=== PATIENT | male | born 1950 | race Caucasian/White ===

== ENCOUNTER 2017-03-21 06:05 | Inpatient (IN) ==
--- NOTE | 2017-03-15 15:11 | EKG Report ---
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
--- NOTE | 2017-03-15 15:28 | XRay Report ---
XR chest 2V Indication: Respiratory preoperative evaluation Comparison: None available Findings: The heart and mediastinum are normal in size and configuration. The pulmonary vascularity is normal in caliber. No lung infiltrates, effusions, pneumothorax or other abnormality is demonstrated. Impression: Normal chest x-ray PROCEDURE INTERPRETED AT [facility] Final Report Signed by: Dr. Ebenezer Ray
[2017-03-21] MEDS ORDERED: ALVIMOPAN 12 MG CAPSULE ONE (06:18)
[2017-03-21] MEDS ORDERED: SODIUM CHLORIDE 0.9% 100 ML IV ONE (06:19)
[2017-03-21] MEDS ORDERED: ERTAPENEM 1,000 MG VIAL ONE (06:19)
--- NOTE | 2017-03-21 06:19 | History and Physical Update ---
History and Physical Update - History and Physical H&P was reviewed, the patient examined and there: are no changes in the patients condition since last H&P was completed. - Dictation Physical: refer to scanned H&P
[2017-03-21] MEDS: LACTATED RINGERS 1,000 ML IV SCH ×6 (06:41→22:51)
[2017-03-21] MEDS ORDERED: ALVIMOPAN 12 MG CAPSULE PO SCH (07:00)
[2017-03-21] MEDS ORDERED: LIDOCAINE 2% 5 ML VIAL ONE (07:05)
[2017-03-21] MEDS ORDERED: PROPOFOL 200 MG/20 ML VIAL IV ONE (07:05)
[2017-03-21] MEDS ORDERED: KETOROLAC 30 MG/1 ML VIAL ONE (07:05)
[2017-03-21] MEDS ORDERED: PHENYLEPHRINE 50 MG/5 ML VIAL ONE (07:05)
[2017-03-21] MEDS ORDERED: ONDANSETRON 4 MG/2 ML VIAL ONE (07:05)
[2017-03-21] MEDS ORDERED: ROCURONIUM 100 MG/10 ML VIAL IV ONE (07:05)
[2017-03-21] MEDS ORDERED: ERTAPENEM 1,000 MG in SODIUM CHLORIDE 0.9% 100 ML IV ONE (07:30)
[2017-03-21] MEDS ORDERED: TISSUE ADHESIVE 1 EACH APPLICATOR TOP ONE (08:07)
--- NOTE | 2017-03-21 10:19 | Operative Note ---
Date of procedure: 03/21/17 Pre-op diagnosis: Right colon cancer with symptomatic cholelithiasis Post-op diagnosis: same Procedure: Preoperative diagnosis 1. Right colon cancer 2. Symptomatic cholelithiasis Postoperative diagnosis Same Procedures performed 1. [Robotic assisted laparoscopic lysis of adhesions 2.] Robotic assisted laparoscopic right colectomy 3. Robotic assisted laparoscopic cholecystectomy Complications None apparent Specimen Right colon Gallbladder Findings Adhesions were present between the omentum and the right lower quadrant in the colon. The tattoo was seen and adequate proximal and distal margins were obtained. There is no liver or peritoneal metastatic deposits. The ileum itself looks noninflamed. Blood loss 25 mL Anesthesia GETA Indications Right colon cancer biopsy-proven and symptomatic cholelithiasis Description of procedure The patient was taken to the operating room and transferred to the operating table in supine position. Pressure points were padded and SCDs were placed lower extremities. General endotracheal anesthesia was administered. A Jang catheter was placed with clear urine output. The patient was prepped and draped with chlorhexidine. Preoperative antibiotics were administered and a timeout was performed. The abdomen was entered in a supraumbilical paramedian location on the left side of the abdominal wall with a Veress needle. An 8 mm skin incision was made with an 11 blade scalpel and penetrating towel clips were used to grasp the abdominal wall skin Veress needle was used to enter the peritoneal cavity confirmed by double click technique. Aspiration was negative. Saline drop test confirmed intraperitoneal location. The Veress needle was used to insufflate the abdominal cavity to 15 mmHg with an initial pressure of 2 mmHg. The Veress needle was removed and a robotic 8 mm trocar was placed blindly. Laparoscope was inserted. There is no evidence of Veress needle or trocar injury. Diagnostic laparoscopy was performed. The tattoo was seen in the proximal ascending colon. There was no peritoneal or hepatic metastases. There was some question of colitis and inflammation in the terminal ileum but this was not present on laparoscopy or at least it was not apparent externally. The omentum had become adherent to the area of the tumor in the descending colon and the tattoo. The 12 mm left upper quadrant abdominal trochars placed under direct visualization after local anesthetic was administered and the 5 mm leasing assistant trocar was placed in the left lower quadrant. The 8 mm left lower quadrant trocar was then placed. The robot was docked. The cecum was retracted and the ileocolic pedicle was identified and divided with a vascular stapler. Medial to lateral dissection was performed with visualization of the duodenum and the dissection was then carried up towards the transverse colon. The omentum was taken off of the tumor on the ascending colon with adhesiolysis but part of the omentum was left in place to ensure an adequate resection of the tumor. The colon was transected after the omentum was taken off the colon with electrocautery using a MISSY stapler. The lateral attachments of the colon were then divided down to the pelvis. The terminal ileum was transected also with a MISSY stapler. An intracorporeal anastomosis was completed by making an enterotomy and colotomy in the GI stapler was used to staple the anastomosis side to side. The enterotomy was closed [with the MISSY stapler]. The mesentery was inspected and was not twisted. The mesenteric defect was left open. The gallbladder was grasped by the leasing assistant trocar and the fundus was retracted towards the patient's right shoulder. The cystic plate peritoneum was dissected with the hook electrocautery until the cystic duct and cystic artery were visualized and the critical view of safety was obtained. The cystic duct and cystic artery were clipped centrally and laterally with Hemo-Loc clips and divided in between with scissors. The gallbladder was removed from the gallbladder fossa using electrocautery and placed in a retrieval bag Endo Catch bag and removed through the 12 mm trocar. The robot was undocked. The specimen was extracted through a left upper quadrant incision extended from the 12 mm trocar site through an Ruslan retractor. The tumor was palpated at the site of the tattoo and there were adequate proximal and distal margins. The fascial incision was closed with a 0 non-looped PDS suture in 2 layers. The skin incisions were closed with 4-0 monocryl sutures. The patient's Jang was removed and she was awakened from anesthesia and transferred to recovery. Postoperative plan Advance diet as tolerated Pain control Anesthesia: ÁLVARO Surgeon / Physician: Tacos Brandt Estimated blood loss: minimal (25 mL) Specimens: other (right colon gallbladder) Condition: stable Disposition: PACU Discharge Plan - Discharge Medications No Action No Known Home Medications [No Known Home Medications] - Follow Up or Referral - Forms/Instructions
--- NOTE | 2017-03-21 10:32 | Anesthesia Post-Op ---
Anesthesia Post OP - Post Ansesthetic Evaluation Patient seen in post op: Yes Resp: within normal limits CV: within normal limits Mental: within normal limits (pt remained sedated) Temp: within normal limits Mezu-Vh-Rqjeuzmvj: within normal limits Nausea and Vomiting: within normal limits Pain: within normal limits
[2017-03-21] MEDS ORDERED: MIDAZOLAM 2 MG/2 ML VIAL ONE (10:43)
[2017-03-21] MEDS ORDERED: SEVOFLURANE 1 UNIT/15 MINUTE INH ONE (10:43)
[2017-03-21] MEDS ORDERED: ACETAMINOPHEN 1,000 MG/100 ML VIAL IV ONE (10:44)
[2017-03-21] MEDS ORDERED: LACTATED RINGERS 3,000 ML IV ONE (10:44)
[2017-03-21] MEDS ORDERED: fentaNYL 100 MCG/2 ML VIAL ONE (10:44)
[2017-03-21] MEDS ORDERED: ONDANSETRON 4 MG/2 ML VIAL IV PRN (11:16)
[2017-03-21] MEDS ORDERED: PROMETHAZINE 25 MG/1 ML VIAL IM PRN (11:16)
[2017-03-21] MEDS ORDERED: HYDROmorphone 2 MG/1 ML VIAL IV PRN (11:16)
[2017-03-21] MEDS: KETOROLAC 30 MG/1 ML VIAL IV SCH ×3 (12:39→22:48)
--- NOTE | 2017-03-21 18:01 | Event Note ---
Patient seen as a courtesy visit. 66-year-old male admitted for resection of colon cancer. He is alert and appears stable after surgery earlier today. Surgery findings noted. Please call if needed.
[2017-03-21] MEDS: ALVIMOPAN 12 MG CAPSULE PO SCH (20:05)
[2017-03-22 04:02] LABS: Basophils % 0.2 % (0.0-0.8); Eosinophils # 0.1 10*3/uL (0.0-0.87); Eosinophils % 0.7 % (0.00-10.9); Hematocrit 27.7 VOL% (42.0-52.0); Hemoglobin 8.6 GM/DL (14.0-18.0); Immature Granulocytes % 0.5 %; Immature Granulocytes Absolute 0.05 #; Lymphocytes # 0.7 10*3/uL (1.4-4.0); Lymphocytes % 7.1 % (21.2-54.2); Mean Corpuscular Hemoglobin 22 PG (27-34); Mean Corpuscular Volume 71.2 FL (87-102); Mean Platelet Volume 9.4 FL (9.6-12.0); Monocytes # 0.8 10*3/uL (0.11-0.8); Monocytes % 8.4 % (1.7-12.7); Neutrophils % 83.1 % (38.7-73.9); Platelet Count 216 T/CUMM (130-400); Red Blood Count 3.89 MC/CUMM (3.8-5.5); Red Cell Distribution Width 17.1 % (9.3-17.3); White Blood Count 9.6 T/CUMM (4-12)
[2017-03-22 04:34] LABS: Calcium 7.6 MG/DL (8.5-10.1); Osmolality,Calculated 273.8 MOS/KG (273-304); Potassium 3.6 MMOL/L (3.5-5.1)
[2017-03-22] MEDS: KETOROLAC 30 MG/1 ML VIAL IV SCH (05:12)
--- NOTE | 2017-03-22 08:05 | Event Note ---
General Surgery Progress Note Chief complaint This patient is a 66-year-old man admitted following robotic assisted laparoscopic right colectomy with cholecystectomy for right colon cancer and symptomatic cholelithiasis on 03/21/2017 Interval history Patient is doing well. Is tolerating regular diet. He is ambulating in the hallway. His pain is well controlled. His hemoglobin this morning is 8.4 and he has a chronic microcytic anemia likely due to blood loss from his cancer. He is not having any orthostatic symptoms with his heart rate is slightly elevated. He has not passed gas or had a bowel movement yet. No nausea or vomiting. Physical exam The patient is afebrile and slightly tachycardic 100-110, blood pressure is normal The abdomen is soft and nondistended with normal bowel sounds. The incisions are clean and dry with no infection or bleeding. Labs Reviewed, as above Creatinine is normal and electrolytes are normal Imaging None new Assessment and plan We will repeat hemoglobin at noon and follow his vital signs at noon as well. If the patient tolerates breakfast and lunch and is not having any troubles and his hemoglobin is stable he can be discharged home today.
[2017-03-22] MEDS: ALVIMOPAN 12 MG CAPSULE PO SCH (08:35)
[2017-03-22] MEDS ORDERED: ENOXAPARIN 40 MG/0.4 ML SYRINGE SUBCUT SCH (09:00)
[2017-03-22 13:01] LABS: Hematocrit 29.8 VOL% (42.0-52.0); Hemoglobin 9.2 GM/DL (14.0-18.0)
--- NOTE | 2017-03-22 13:43 | Discharge Summary ---
Hospital Course - Hospital Course Hospital Course: Patient is a 66-year-old male admitted for observation status post robotic assisted laparoscopic lysis of adhesions, right colectomy, and cholecystectomy for right colon cancer and symptomatic cholelithiasis. Postoperatively, the patient progressed well. He was tolerating oral intake and activity voiding without difficulty. He had some mild urinary retention with known BPH, flomax was initiated to f/u Dr. Garcia. His pain was well-controlled. He was discharged home in good condition with follow Dr. Garcia in 2 weeks. Pathology pending at the time of discharge of gallbladder and right colon. Diagnosis - Discharge Diagnosis (1) Cholelithiases Status: Acute (2) Colon cancer Status: Acute Specialty Discharge - Follow Up or Referrals Follow up with: Tacos Garcia MD [Physician] - 03/29/17 1:45 pm (DR GARCIA WILL BE OUT NEXT WEEK YOU WILL SEE ) Discharge Plan - Discharge Data Disposition: Disch To Home/Self Care Condition at Discharge: Stable Discharge Diet: other (see below) Activity: no lifting (> 10lb) Hygiene: may shower (starting 2nd day after surgery) Driving: other (Do not drive or operate heavy machinery while taking narcotics) Contact your physician if you experience:: fever over 101, Difficulty voiding, Redness or swelling, Nausea/Vomiting, Shortness of breath, Bleeding, pain uncontrolled by pain medications Wound / Dressing Care Instructions: Keep surgical incision is clean, dry and covered. Do not soak or submerge wounds. Pat wounds dry appear - Discharge Medications New HYDROcodone/ACETAMIN 7.5-325 [[place] 7.5-325] 1 tablet PO Q4H PRN #40 tablet PRN Reason: Pain Moderate To Severe (4-10) - Follow Up or Referral Follow Up: Tacos Garcia MD [Physician] - 03/29/17 1:45 pm (DR GARCIA WILL BE OUT NEXT WEEK YOU WILL SEE ) - Forms/Instructions Instructions: Low Fiber Diet (GEN), Laparoscopic Cholecystectomy (DC), Laparoscopic Bowel Resection (DC) Exam - Constitutional Vitals: Period Temp Pulse Resp BP Sys/Melvin Pulse Ox Last 24 Hr 97.0 F-99.5 F 90-110 18-20 131-169/70-83 95-[address] Garcia note. Discharge Results Procedures and tests throughout hospitalization: #1 robotic assisted laparoscopic lysis of adhesions; right colectomy; cholecystectomy Pathology pending at the time of discharge: Right colon and gallbladder Labs on day of discharge: Labs from last 24 hours 03/22/17 03/22/17 03/22/17 12:51 03:25 03:24 WBC 9.6 RBC 3.89 Hgb 9.2 L 8.6 L Hct 29.8 L 27.7 L MCV 71.2 L MCH 22 L MCHC 31.0 L RDW 17.1 Plt Count 216 MPV 9.4 L Neut % (Auto) 83.1 H Lymph % (Auto) 7.1 L [place] % (Auto) 8.4 Eos % (Auto) 0.7 Baso % (Auto) 0.2 Neut # (Auto) 8.0 H Lymph # (Auto) 0.7 L [place] # (Auto) 0.8 Eos # (Auto) 0.1 Baso # (Auto) 0.0 Immature Gran % 0.5 Nucleated RBC % 0.0 Immature Gran # 0.05 Nucleated RBCs # 0.00 Immature Plt Fraction 0.0 Sodium 137 Potassium 3.6 Chloride 102 Carbon Dioxide 28 Anion Gap 10.6 BUN 15 Creatinine 1.10 GFR Calculation 83 BUN/Creatinine Ratio 13.00 Glucose 102 Calculated Osmolality 273.8 Calcium 7.6 L - Imaging and Cardiology Procedure: Chest x-ray: image reviewed by me, report reviewed by me DS: Provider Date of admission: 03/21/17 10:19 Primary care physician: Kenny Braswell MD Attending physician on admission: Tacos Garcia MD Consults: 03/21/17 11:16 Consult to Physician [CONS] Routine Comment: courtesy consult Consulting Provider: Edilson Shah Consulting Provider Notified: Yes When should Consulting Provider be notified: Now Consult to Specialist Group: Gastroenterology When should Consulting Provider be notified: Now Person Notified: SHAUNNA Date Notified: 03/21/17 Time Notified: 13:51 Discharging clinician: Jovita Rodrigues PA-C
[2017-03-22 16:06] VITALS: BP 168/79
--- NOTE | 2017-03-23 13:17 | Pathology Report from [facility] ---
[facility] # : [id number] PATIENT NAME : Roby Foley ORDERING DR : Tacos Brandt MD CLINICAL HX: Colon cancer - Cholelithiasis POST-OP DX: Same SPECIMEN INFO: #1 Right colon #2 Gallbladder GROSS DESCRIPTION: #1 ROBY FOLEY is a 34.5 cm segment of right colon 2.2 cm to 5.0 cm in greatest diameter. Attached terminal ileum is 14.0 x 3.0 cm. An appendix is present measuring 5.0 x 0.8 cm. Opening the colon reveals a circumferential constricting tumor mass measuring 4.3 x 3.2 cm situated 22.5 cm from the distal margin and 23.0 cm from the proximal margin. Grossly the tumor extends beyond the bowel wall into the adjacent mesentery, coming to within 2.8 cm of the mesenteric margin. No perforation. There is also a firm pink white nodule area noted within a fragment of attached omentum which measures 1.0 x 0.8 cm. Lymph nodes will be submitted following fixation. Sections 1A-Proximal margin, 1B-Distal margin, 1C-Mesenteric margin, 1D-1G-Tumor, 1H-Appendix, 1I- Omental nodule, 1J-1K- multiple nodes, 1L- one node, 1M- multiple possible nodes , 1N- two nodes, 1O- multiple nodes with one inked blue and one inked black.#2 ROBY FOLEY consists of an intact gallbladder measuring 6.0 x 2.8 cm. The serosa is smooth and yellow tinged. The gallbladder wall has an average thickness of 0.3 cm. The mucosa surface is velvety and red fontanez. The lumen contains hyperemic gold bile with a few coarse black stones noted measuring up to 1.2 x 1.0 cm. Human Factors Engineer sections are submitted in cassette #2. DIAGNOSIS FOR ROBY FOLEY: #1 RIGHT COLON & TERMINAL ILEUM, PARTIAL ILEOCOLECTOMY (Intact, 48.5 x 5.0 cm): TYPE: Invasive adenocarcinoma. TUMOR SITE: Ascending colon. TUMOR SIZE: 4.3 x 3.2 cm. MACROSCOPIC TUMOR PERFORATION : Absent. HISTOLOGIC GRADE: Moderately differentiated. TUMOR EXTENSION: Invades into the pericolic fat without serosal surface involvement. MARGINS, PROXIMAL: Uninvolved by carcinoma, distance = 23.0 cm. DISTAL : Uninvolved by carcinoma, distance = 22.5 cm. MESENTERIC: Uninvolved by carcinoma, distance = 2.8 cm. TREATMENT EFFECT: No prior treatment. LYMPHOVASCULAR INVASION: Not identified. PERINEURAL INVASION: Not identified. TUMOR DEPOSITS: Not identified. TUMOR BUDDING: High score (>10). LYMPH NODES: NUMBER EXAMINED = 32; NUMBER INVOLVED = 1 (132). ADDITIONAL FINDINGS: Appendiceal fibrosis; Focal omental fat necrosis with fibrosis. AJCC (2018) PATHOLOGIC STAGE IIIB ([id number]).#2 GALLBLADDER, CHOLECYSTECTOMY: Chronic cholecystitis. Cholelithiasis. COLLECTED DATE: 03/21/2017 [facility] REPORT DATE: 03/23/2017 ELECTRONICALLY SIGNED BY: Praful Roman M.D. 03/23/2017 - 8:36:41 [facility]TDD
--- NOTE | 2017-03-29 09:13 | Physician Query Form ---
CLICK EDIT DOCUMENT TO SELECT QUERY ANSWER --> OK --> SIGN Naomi Haddad RN, CCDS Certified Clinical Cattle [employer] Worker W) [phone] (f) [phone] [email or web address] PROVIDERS: Make your selection(s) from the choices in EACH section by typing an "x" and enter comments in the comment section. Please use your independent medical judgment in providing your response. This request does not imply that any particular answer is desired or expected. CLINICAL INDICATORS: (Providers should not edit this section) Pathology Findings: DIAGNOSIS FOR JANETH FOLEY: #1 RIGHT COLON & TERMINAL ILEUM, PARTIAL ILEOCOLECTOMY (Intact, 48.5 x 5.0 cm): TYPE: Invasive adenocarcinoma. TUMOR SITE : Ascending colon. TUMOR SIZE: 4.3 x 3.2 cm. MACROSCOPIC TUMOR PERFORATION: Absent. HISTOLOGIC GRADE: Moderately differentiated. TUMOR EXTENSION: Invades into the pericolic fat without serosal surface involvement. MARGINS, PROXIMAL: Uninvolved by carcinoma, distance = 23.0 cm. DISTAL: Uninvolved by carcinoma, distance = 22.5 cm. MESENTERIC: Uninvolved by carcinoma, distance = 2.8 cm. TREATMENT EFFECT: No prior treatment. LYMPHOVASCULAR INVASION: Not identified. PERINEURAL INVASION: Not identified. TUMOR DEPOSITS: Not identified. TUMOR BUDDING: High score (>10). LYMPH NODES: NUMBER EXAMINED = 32; NUMBER INVOLVED = 1 (). ADDITIONAL FINDINGS: Appendiceal fibrosis; Focal omental fat necrosis with fibrosis. AJCC (2018) PATHOLOGIC STAGE IIIB ([id number]).#2 GALLBLADDER, CHOLECYSTECTOMY: Chronic cholecystitis. Cholelithiasis. Abnormal Pathology findings are not reported unless an authorized provider indicates their clinical significance Please select the best choice: ( ) I agree with the Pathology findings ( ) I disagree with the Pathology findings ( ) No clinical significance ( ) Other/clarification of findings, please specify: ( ) Clinically unable to determine COMMENTS: PLEASE ALSO DOCUMENT RESPONSE IN PROGRESS NOTES AND/OR DISCHARGE SUMMARY Use of terms such as suspected, likely, or probable (associated with a specific diagnosis that is being evaluated, monitored, or treated as if it exists) are acceptable and can be restated in the discharge summary if not ruled out. [facility]
--- NOTE | 2017-04-05 07:20 | Physician Query Form ---
CLICK EDIT DOCUMENT TO SELECT QUERY ANSWER --> OK --> SIGN Naomi Haddad RN, CCDS Certified Clinical Patient Care Technician W) [phone] (f) [phone] [email or web address] PROVIDERS: Make your selection(s) from the choices in EACH section by typing an "x" and enter comments in the comment section. Please use your independent medical judgment in providing your response. This request does not imply that any particular answer is desired or expected. CLINICAL INDICATORS: (Providers should not edit this section) Pathology Findings: DIAGNOSIS FOR JANETH FOLEY: #1 RIGHT COLON & TERMINAL ILEUM, PARTIAL ILEOCOLECTOMY (Intact, 48.5 x 5.0 cm): TYPE: Invasive adenocarcinoma. TUMOR SITE : Ascending colon. TUMOR SIZE: 4.3 x 3.2 cm. MACROSCOPIC TUMOR PERFORATION: Absent. HISTOLOGIC GRADE: Moderately differentiated. TUMOR EXTENSION: Invades into the pericolic fat without serosal surface involvement. MARGINS, PROXIMAL: Uninvolved by carcinoma, distance = 23.0 cm. DISTAL: Uninvolved by carcinoma, distance = 22.5 cm. MESENTERIC: Uninvolved by carcinoma, distance = 2.8 cm. TREATMENT EFFECT: No prior treatment. LYMPHOVASCULAR INVASION: Not identified. PERINEURAL INVASION: Not identified. TUMOR DEPOSITS: Not identified. TUMOR BUDDING: High score (>10). LYMPH NODES: NUMBER EXAMINED = 32; NUMBER INVOLVED = 1 (). ADDITIONAL FINDINGS: Appendiceal fibrosis; Focal omental fat necrosis with fibrosis. AJCC (2018) PATHOLOGIC STAGE IIIB ([id number]).#2 GALLBLADDER, CHOLECYSTECTOMY: Chronic cholecystitis. Cholelithiasis. Abnormal Pathology findings are not reported unless an authorized provider indicates their clinical significance Please select the best choice: (x) I agree with the Pathology findings ( ) I disagree with the Pathology findings ( ) No clinical significance ( ) Other/clarification of findings, please specify: ( ) Clinically unable to determine COMMENTS: PLEASE ALSO DOCUMENT RESPONSE IN PROGRESS NOTES AND/OR DISCHARGE SUMMARY Use of terms such as suspected, likely, or probable (associated with a specific diagnosis that is being evaluated, monitored, or treated as if it exists) are acceptable and can be restated in the discharge summary if not ruled out. [facility]
== END 2017-03-22 16:58 | disposition home or self-care (01) | DRG 330 ==
LOC: N.SDSINP 06:05 → N.OR 06:05 → N.4E 10:19
PROVIDERS: ADMIT Surgery; ATTEND Surgery